=== PATIENT | female | born 1955 | race Two or more races ===

== ENCOUNTER 2024-05-26 09:20 | Emergency (ER) | payer MEDICARE, OTHER ==
[~2024-05-26] VITALS: Ht 160 cm; Wt 79.0 kg
[2024-05-26 09:32] VITALS: TEMP 98.5
[2024-05-26 10:00] LABS: BASOPHILS % (AUTO) 0.3 % (0.0-2.0); EOSINOPHILS % (AUTO) 1.4 % (1.0-6.0); HEMATOCRIT 36.5 % (36-46); HEMOGLOBIN 12.5 g/dL (12.0-16.0); LYMPHOCYTES # (AUTO) 1.1 K/uL (1.0-4.8); LYMPHOCYTES % (AUTO) 15.1 % (22.0-44.0); MEAN CORPUSCULAR HEMOGLOBIN 30.7 pg (26.0-34.0); MEAN CORPUSCULAR HGB CONC 34.4 G/dL (31.0-37.0); MEAN CORPUSCULAR VOLUME 89 fL (80-100); MONOCYTES # (AUTO) 0.7 K/uL (0.1-1.0); MONOCYTES % (AUTO) 9.6 % (2.0-9.0); NEUTROPHILS # (AUTO) 5.2 K/uL (1.8-7.7); NEUTROPHILS % (AUTO) 73.6 % (40.0-70.0); RED BLOOD CELL COUNT(AUTO) 4.08 MIL/uL (4.00-5.20); RED CELL DISTRIBUTION WIDTH 13.8 % (11.5-14.5)
[2024-05-26 10:09] LABS: CREATININE 1.04 mg/dL (0.60-1.30)
[2024-05-26 10:18] LABS: TROPONIN I-HIGH SENSITIVITY 20 ng/L (<51)
[2024-05-26 10:31] LABS: PLATELET COUNT (AUTO) 73 K/uL (150-450)
[2024-05-26 10:32] LABS: RBC MORPHOLOGY COMMENT NORMAL RBC MORPH
[2024-05-26] MEDS: NiCARDipine HCL 25 MG in SODIUM CHLORIDE 0.9% 240 ML IV PRN (10:40)
[2024-05-26] MEDS: LevETIRAcetam 1,000 MG in DEXTROSE 5%-WATER 100 ML IV ONE (10:40)
[2024-05-26 12:25] VITALS: BP 117/64; PULSE 83; RESP 16; O2SAT 98
== END 2024-05-26 13:11 | disposition admitted as inpatient to this hospital (09) ==
LOC: EMS 09:20
DX: I61.4 Nontraumatic intracerebral hemorrhage in cerebellum (principal); I10 Essential (primary) hypertension; F03.90 Unspecified dementia, unspecified severity, without behavioral disturbance, psychotic disturbance, mood disturbance, and anxiety
CPT/HCPCS: 99291; 70450; 96365; 80048; 84484; 85025; 36415; 71045; 72125; 93005; 96368; J0712; J3490; J7060; J7050